=== PATIENT | male | born 1995 | race Caucasian/White ===

== ENCOUNTER 2017-12-06 15:52 | Day surgery (SDC) | payer OTHER ==
[2017-12-05 16:19] VITALS: BMI 27.2
[~2017-12-06 15:52] MED LIST: Dexamethasone 20 MG/5 ML VIAL ONE; Ketorolac Tromethamine 30 MG/ML VIAL ONE; Lidocaine 1% PF 5 ML VIAL ONE; Ondansetron HCl/PF 4 MG/2 ML Vial ONE; PROPOFOL 200 MG/20 ML VIAL ONE; ePHEDrine/0.9% NaCl/PF SYRINGE 50 mg/10 ml ONE
[2017-12-06] MEDS ORDERED: Clindamycin/D5W 600 mg/50 ml Premix Bag ONE (16:38)
[2017-12-06] MEDS ORDERED: Bupivacaine PF 0.5% 30 ML VIAL ONE (18:31)
[2017-12-06] MEDS ORDERED: Fentanyl 100 MCG/2 ML VIAL ONE (18:37)
[2017-12-06] MEDS ORDERED: Bacitracin Zinc Ointment 30 gm TUBE ONE (20:08)
--- NOTE | 2017-12-07 16:38 | OP ---
PREOPERATIVE DIAGNOSIS: Right hand 5 cm open wound after previous contaminated wound 1 week ago. POSTOPERATIVE DIAGNOSIS: No contamination found in the wound, but wound is still open. PROCEDURES PERFORMED: 1. Closure of rotational flap, wound, complex 5 cm palmar right hand. 2. Debridement of wound, intermediate depth, [address], down to, but not including bone or joint. INDICATIONS: Staged wound management. ANESTHESIA: General LMA technique augmented by 10 mL of 0.5% Marcaine dunia-incisional block. DESCRIPTION OF PROCEDURE: After successful anesthesia listed above and a dunia-incisional block, the patient had the wound inspected. Previous sutures were removed, we inspected the wound, debrided the denuded fat and irrigated with 1-liter normal saline with bulb syringe pressure. No tourniquet was inflated. Once hemostasis was obtained, we found we could rotate the zigzag distally about 4 mm clos ing the 6 mm gap ____ undue tension. Thus, we used a 2-layer closure with epidermal layer with 3-0 n ylon interrupted simple pattern alternating with mattress. Bulky dressing was applied, and the patie nt left the operating room without evidence of anesthetic or operative complication.
== END 2017-12-06 21:11 | disposition home or self-care (01) ==
LOC: SDC 15:52
PROVIDERS: ATTEND Orthopaedic Surgery Hand Surgery
PROC: 0JQJ0ZZ Repair Right Hand Subcutaneous Tissue and Fascia, Open Approach (ICD-10-PCS; principal; 2017-12-06)
DX: S61.431A Puncture wound without foreign body of right hand, initial encounter (principal); F17.210 Nicotine dependence, cigarettes, uncomplicated; Z79.899 Other long term (current) drug therapy; Y29.XXXA Contact with blunt object, undetermined intent, initial encounter
CPT/HCPCS: J1100; J1885; J2001; J2405; J2704; J3010; J3490; S0020